=== PATIENT | male | born 1970 | race Hispanic/Latino ===

== ENCOUNTER 2020-08-08 14:15 | Emergency (ER) | payer BC ==
--- NOTE | 2020-08-08 16:06 | RAD REPORT ---
EXAM DESCRIPTION: RAD - Elbow Left 3 View - 08/08/2020 3:27 pm CLINICAL HISTORY: Left elbow pain status post trauma FINDINGS: No fracture or dislocation is seen. Large spur extends off of the olecranon
--- NOTE | 2020-08-08 16:09 | RAD REPORT ---
EXAM DESCRIPTION: RAD - Knee Left 3 View - 08/08/2020 3:27 pm CLINICAL HISTORY: Left knee pain status post injury FINDINGS: A 9 millimeter bony/calcific density superior to the patella probably chronic as there ahuja s not appear to be a significant joint effusion No acute fracture or dislocation is seen. Osteoarthritis If patient continues have symptoms to suggest an occult fracture, ligamentous or meniscal injury MRI would be recommended
--- NOTE | 2020-08-08 21:02 | ER ---
Nurse's Notes [facility] Name: Stevo Zuñiga Age: 50 yrs Sex: Male : 1970 Arrival Date: 08/08/2020 Time: 14:17 Bed 24 Private MD: Diagnosis: Internal derangement of knee;Contusion of left elbow;Strain of muscle, fascia and tendon of lower back Presentation: 08/08 14:38 Chief complaint: Patient states: "I slipped and fell on the ice and hurt my left knee jd3 and my left elbow. and now I have a knot in my back.". Coronavirus screen: At this time, the client does not indicate any symptoms associated with coronavirus-19. Ebola Screen: Patient negative for fever greater than or equal to 101.5 degrees Fahrenheit, and additional compatible Ebola Virus Disease symptoms. Initial Sepsis Screen: Does the patient meet any 2 criteria? No. Patient's initial sepsis screen is negative. Does the patient have a suspected source of infection? No. Patient's initial sepsis screen is negative. Risk Assessment: Do you want to hurt yourself or someone else? Patient reports no desire to harm self or others. Onset of symptoms was August 08, 2020. 14:38 Method Of Arrival: Ambulatory jd3 14:38 Acuity: DHAVAL 3 jd3 Historical: - Allergies: 14:40 No Known Allergies; jd3 - Home Meds: 14:41 Metformin Oral [Active]; lisinopril 5 mg Oral tab [Active]; jd3 - PMHx: 14:40 None; jd3 - PSHx: 14:40 ruptured colon; jd3 - Immunization history:: Adult Immunizations up to date. - Social history:: Smoking status: Patient denies any tobacco usage or history of. Vital Signs: 14:41 BP 120 / 75; Pulse 85; Resp 17 S; Temp 97.5(TE); Pulse Ox 97% on R/A; Weight 122.47 kg jd3 (R); Height 5 ft. 9 in. (175.26 cm) (R); Pain 8/10; 14:41 Body Mass Index 39.87 (122.47 kg, 175.26 cm) jd3 ED Course: 14:17 Patient arrived in ED. ds1 14:39 Triage completed. jd3 14:41 Arm band placed on. jd3 15:27 Elbow Left 3 View XRAY In Process Unspecified. EDMS 15:27 Knee Left 3 View XRAY In Process Unspecified. EDMS 20:38 [facility]ied[facility] 20:38 Stuart Ventura MD is Attending Physician. [facility] 20:59 Woo Nascimento MD is Referral Physician. [facility] Administered Medications: No medications were administered Outcome: 21:01 Discharge ordered by . [facility] 21:17 Patient left the ED. sg Signatures: Dispatcher [employer] EDMS Mariano Foote, RN RN sg Valdo Oviedo PA PA [facility] Rowena Dent ds1 Ras Turpin RN RN jd3 Corrections: (The following items were deleted from the chart) 14:42 14:41 Pulse 85bpm; Resp 17bpm; Spontaneous; Pulse Ox 97% RA; Temp 97.5F Temporal; jd3 122.47 kg Reported; Height 5 ft. 9 in. Reported; BMI: 39.8; Pain 8/10; jd3
--- NOTE | 2020-08-08 21:02 | EDPHYS ---
Physician Documentation [facility] Name: Stevo Zuñiga Age: 50 yrs Sex: Male : 1970 Arrival Date: 08/08/2020 Time: 14:17 Bed 24 Private MD: ED Physician Stuart Ventura HPI: 08/08 20:46 This 50 yrs old Male presents to ER via Ambulatory with complaints of Fall jmm Injury. 20:46 Details of fall: The patient fell from an upright position. Onset: The symptoms/episode jmm began/occurred acutely, just prior to arrival. Associated injuries: The patient sustained left knee, left elbow, lower back. This is a 50 year old male with no chronic medical conditions that presents to the ED with complaints of left knee pain, left elbow pain, lower back pain after slipping and falling. Historical: - Allergies: 14:40 No Known Allergies; jd3 - Home Meds: 14:41 Metformin Oral [Active]; lisinopril 5 mg Oral tab [Active]; jd3 - PMHx: 14:40 None; jd3 - PSHx: 14:40 ruptured colon; jd3 - Immunization history:: Adult Immunizations up to date. - Social history:: Smoking status: Patient denies any tobacco usage or history of. ROS: 20:53 Constitutional: Negative for fever, chills, and weight loss, Cardiovascular: Negative jmm for chest pain, palpitations, and edema, Respiratory: Negative for shortness of breath, cough, wheezing, and pleuritic chest pain. 20:53 MS/extremity: Positive for pain. 20:53 All other systems are negative. Exam: 20:53 Constitutional: This is a well developed, well nourished patient who is awake, alert, jmm and in no acute distress. Head/Face: atraumatic. Eyes: EOMI, no conjunctival erythema appreciated ENT: Moist Mucus Membranes Neck: Trachea midline, Supple Chest/axilla: Normal chest wall appearance and motion. Cardiovascular: Regular rate and rhythm. No edema appreciated Respiratory: Normal respirations, no respiratory distress appreciated Abdomen/GI: Non distended, soft Back: Normal ROM Skin: General appearance color normal 20:53 Back: no midline tenderness. 20:53 Musculoskeletal/extremity: left ant knee pain on palpation, compartments are soft, NVI, FROM appreciated to the left elbow, compartments are soft, NVI. 20:53 Skin: Appearance: Color: normal in color. 20:53 Neuro: Orientation: is normal, Mentation: is normal, Memory: is normal. 20:53 Psych: Behavior/mood is pleasant, cooperative. Vital Signs: 14:41 BP 120 / 75; Pulse 85; Resp 17 S; Temp 97.5(TE); Pulse Ox 97% on R/A; Weight 122.47 kg jd3 (R); Height 5 ft. 9 in. (175.26 cm) (R); Pain 8/10; 14:41 Body Mass Index 39.87 (122.47 kg, 175.26 cm) jd3 MDM: 20:41 Patient medically screened. jorge l 20:58 Data reviewed: vital signs, nurses notes. Counseling: I had a detailed discussion with jorge l the patient and/or guardian regarding: the historical points, exam findings, and any diagnostic results supporting the discharge/admit diagnosis, radiology results, the need for outpatient follow up, to return to the emergency department if symptoms worsen or persist or if there are any questions or concerns that arise at home. ED course: Imaging studies negative. patient is advised to follow up with pcp and otherwise given strict return precautions. Patient understood and agrees with the plan of care. . 08/08 14:44 Order name: Elbow Left 3 View XRAY; Complete Time: 19:22 jd3 08/08 14:44 Order name: Knee Left 3 View XRAY; Complete Time: 19:22 jd3 08/08 20:46 Order name: Polo wrap-joint; Complete Time: 20:48 [facility] Administered Medications: No medications were administered Disposition: 23:13 Co-signature as Attending Physician, Stuart Ventura MD. rn Disposition: 08/08/20 21:01 Discharged to Home. Impression: Internal derangement of knee, Contusion of left elbow, Strain of muscle, fascia and tendon of lower back. - Condition is Stable. - Discharge Instructions: Back Pain, Adult, Knee Pain. - Prescriptions for Ibuprofen 800 mg Oral Tablet - take 1 tablet by ORAL route every 8 hours As needed take with food; 30 tablet. Zanaflex 4 mg Oral Tablet - take 1 tablet by ORAL route every 8 hours As needed; 20 tablet. - Medication Reconciliation Form, Thank You Letter, Antibiotic Education, Prescription Opioid Use, Work release form form. - Follow up: Woo Nascimento MD; When: 2 - 3 days; Reason: Recheck today's complaints, Continuance of care, Re-evaluation by your physician. Signatures: Dispatcher [employer] EDMariano Bhardwaj RN RN Valdo Urrutia PA PA jmm Nieto, Roman, MD MD rn Davies, Jonathon, RN RN jd3 Corrections: (The following items were deleted from the chart) 21:17 21:01 08/08/2020 21:01 Discharged to Home. Impression: Internal derangement of knee; sg Contusion of left elbow; Strain of muscle, fascia and tendon of lower back. Condition is Stable. Forms are Medication Reconciliation Form, Thank You Letter, Antibiotic Education, Prescription Opioid Use. Follow up: Woo Nascimento; When: 2 - 3 days; Reason: Recheck today's complaints, Continuance of care, Re-evaluation by your physician. jorge l
[2020-08-08 21:25] VITALS: BP 120/75; TEMP 97.5; O2SAT 97
== END 2020-08-08 21:17 | disposition home or self-care (01) ==
LOC: ER 14:15
DX: S39.012A Strain of muscle, fascia and tendon of lower back, initial encounter (principal); M23.92 Unspecified internal derangement of left knee; S50.02XA Contusion of left elbow, initial encounter; W01.0XXA Fall on same level from slipping, tripping and stumbling without subsequent striking against object, initial encounter
CPT/HCPCS: 99282

== ENCOUNTER 2022-05-10 07:06 | Day surgery (SDC) | payer BC ==
[2022-05-10] MEDS ORDERED: NA CHLORIDE 0.9% 1,000 ML ONE (07:35)
[2022-05-10] MEDS ORDERED: propofoL 200 MG/20 ML VIAL IV ONE ×2 (08:42→08:43)
[2022-05-10] MEDS ORDERED: LIDOCAINE 1% MPF 5 ML VIAL ONE (08:43)
[2022-05-10 10:49] VITALS: TEMP 97.2; O2SAT 100
[2022-05-10 10:52] VITALS: BP 119/87
== END 2022-05-10 09:42 | disposition home or self-care (01) ==
LOC: OR 07:06
PROVIDERS: ATTEND Surgery
PROC: 0DBP8ZX Excision of Rectum, Via Natural or Artificial Opening Endoscopic, Diagnostic (ICD-10-PCS; 2022-05-10)
PROC: 0DBC8ZX Excision of Ileocecal Valve, Via Natural or Artificial Opening Endoscopic, Diagnostic (ICD-10-PCS; principal; 2022-05-10 08:45)
DX: Z12.11 Encounter for screening for malignant neoplasm of colon (principal); D12.7 Benign neoplasm of rectosigmoid junction; K64.8 Other hemorrhoids; K64.4 Residual hemorrhoidal skin tags; K63.89 Other specified diseases of intestine; K52.9 Noninfective gastroenteritis and colitis, unspecified
CPT/HCPCS: 82947; 88305; 45385; J2704 ×2; J2001; J7030

== ENCOUNTER 2024-06-11 06:45 | Day surgery (SDC) | payer BC ==
[2024-06-02 15:15] LABS: Absolute Basophils 0.1 K/uL (0-0.5); Absolute Eosinophils 0.2 K/uL (0-0.5); Absolute Monocytes 0.6 K/uL (0.1-1.3); Absolute Neutrophil 4.4 K/uL (1.8-8.0); Basophils % 0.9 % (0-1.3); Eosinophils % 1.9 % (0-4.4); Hematocrit 44.7 % (39.6-49.0); Hemoglobin 15.8 g/dL (13.6-17.9); Lymphocytes % 36.3 % (15.3-44.8); MCH 30.6 pg (27.0-35.0); MCHC 35.4 g/dL (32.0-36.0); MCV 86.3 fL (80-100); MPV 8.6 fL (7.6-11.3); Monocytes % 6.8 % (3.3-12.3); Neutrophils % 54.1 % (41.7-73.7); Nucleated Red Blood Cells % 0.3 % (0-0); Platelets 193 thou/uL (152-406); RBC Red Blood Cell Count 5.17 M/uL (4.33-5.43); Red Cell Distribution Width 13.9 % (12.1-15.2)
[2024-06-02 15:39] LABS: Anion Gap 6.8 mEq/L (5.0-15.0); Potassium 3.8 mEq/L (3.5-5.1)
--- NOTE | 2024-06-04 15:50 | EKG ---
Test Date: 2024-06-02 Test Time: 15:56:14 Biostatistics Director: PREO MEASUREMENT RESULTS: Intervals: Rate: 69 SC: 150 QRSD: 100 QT: 362 QTc: 387 [place]: P: 52 SC: 150 QRS: 9 T: -10 INTERPRETIVE STATEMENTS: Normal sinus rhythm Nonspecific ST abnormality Abnormal ECG Compared to ECG 02/07/2014 08:44:28 ST (T wave) deviation now present Sinus bradycardia no longer present Left ventricular hypertrophy no longer present Electronically Signed On 06-04-24 15:48:05 COUNTER CHECKER by Alberto Macario
[2024-06-11] MEDS ORDERED: LIDOCAINE 1% MPF 30 ML VIAL ONE (07:16)
[2024-06-11] MEDS ORDERED: propofoL 200 MG/20 ML VIAL IV ONE (07:17)
[2024-06-11] MEDS: Ringers Lactate 1,000 ML IV ONE (08:05)
[2024-06-11 08:57] VITALS: TEMP 97
[2024-06-11 08:58] VITALS: BP 119/71; O2SAT 94
== END 2024-06-11 09:22 | disposition home or self-care (01) ==
LOC: OR 06:45
PROVIDERS: ATTEND Surgery
PROC: 0DBP8ZX Excision of Rectum, Via Natural or Artificial Opening Endoscopic, Diagnostic (ICD-10-PCS; 2024-06-11)
PROC: 0DBM8ZX Excision of Descending Colon, Via Natural or Artificial Opening Endoscopic, Diagnostic (ICD-10-PCS; principal; 2024-06-11 08:00)
DX: Z12.11 Encounter for screening for malignant neoplasm of colon (principal); N42.9 Disorder of prostate, unspecified; K64.8 Other hemorrhoids; K63.89 Other specified diseases of intestine; K63.5 Polyp of colon
CPT/HCPCS: 93005; 85025; 80048; 36415; 88305; 45380; J2704; J2003; J7120